=== PATIENT | female | born 1980 | race Caucasian/White ===

== ENCOUNTER 2016-09-15 11:23 | Day surgery (SDC) | payer OTHER ==
[~2016-09-15] VITALS: Ht 170.2 cm; Wt 78.5 kg
[2016-09-15] VITALS (11 sets, daily range): BP systolic 113–127; BP diastolic 55–78; PULSE 62–75; RESP 11–20; Ht 170.2 cm; Wt 78.5 kg
--- NOTE | 2016-09-15 10:36 | PREOPHP ---
DATE OF ADMISSION: 09/15/2016 PODIATRIC HISTORY AND PHYSICAL HISTORY OF PRESENT ILLNESS: The patient is being admitted on this date 09/15/2016 for elective foot surgery. Palliative treatment unsuccessful. Patient has been explained surgery, complications and a lternatives and elected to have elective foot surgery. The patient has a cyst on the medial left fo ot. ALLERGIES: The patient denies any. MEDICATIONS: Has been taking medicine for breast feeding and that's it. REVIEW OF SYSTEMS: Heart, lungs, liver, kidney, thyroid all negative. Diabetes negative. SOCIAL HISTORY: Negative for smoking and alcohol. PHYSICAL EXAMINATION: See any other pertinent history and upper extremity physical exam by Dr. Jo. LOWER EXTREMITY: Shows a DP and PT equal and regular. NEUROLOGICAL: Negative for pathology. DERMATOLOGIC: Shows a cyst on the left foot, medial aspect. MUSCULOSKELETAL: Negative. FINAL DIAGNOSES: A cyst left foot. Dictated By: ADRIENNE SALAZAR/RADU Conf#: [id number] DID#: [id number]
[2016-09-15] MEDS ORDERED: PRENATAL VITAMINS (12:39)
--- NOTE | 2016-09-15 12:40 | HPN ---
Date/Time of Note Date/Time of Note DATE: 09/15/16 TIME: 12:40 Interval H&P Admission Note Pt. seen H&P reviewed: No system changes ADRIENNE TILLEY DPM September 15, 2016 12:40
[2016-09-15] MEDS ORDERED: METOCLOPRAMIDE 10 MG INJ ONE (12:45)
[2016-09-15] MEDS ORDERED: ONDANSETRON 4 MG INJ ONE (12:45)
[2016-09-15] MEDS ORDERED: PROPOFOL 20 ML ONE (12:45)
[2016-09-15] MEDS ORDERED: CEFAZOLIN 1 GM INJ ONE (12:45)
[2016-09-15] MEDS ORDERED: SUCCINYLCHOLINE CHLORIDE 100 MG/5 ML SYG IV ONE (12:45)
[2016-09-15] MEDS ORDERED: FENTAnyl 50 MCG/ML VIAL ONE (12:45)
[2016-09-15] MEDS ORDERED: ROCURONIUM 50 MG INJ ONE (12:45)
[2016-09-15] MEDS ORDERED: BUPIVACAINE 0.5% (SDV) 30 ML INJ ONE (13:10)
[2016-09-15] MEDS ORDERED: POVIDONE IODINE 10% 28.4 GM OINT ONE (13:11)
[2016-09-15] MEDS ORDERED: HYDROmorphONE (0.2 MG/ML) 10ML SYG IV PRN ×3 (13:30)
[2016-09-15] MEDS ORDERED: MEPERIDINE 25 MG INJ IV PRN (13:30)
[2016-09-15] MEDS ORDERED: ONDANSETRON 4 MG INJ IV PRN (13:30)
[2016-09-15] MEDS ORDERED: FENTAnyl 50 MCG/ML VIAL IV PRN ×2 (13:30)
[2016-09-15] MEDS ORDERED: HYDROmorphONE (0.2 MG/ML) 10ML SYG IV ONE (13:57)
--- NOTE | 2016-09-15 14:09 | OPR ---
DATE OF OPERATION: 09/15/2016 PREOPERATIVE DIAGNOSIS: Cyst, left foot. POSTOPERATIVE DIAGNOSIS: Cyst, left foot. OPERATION: Excision of cyst, left foot. SURGEON: Danny Figueredo DPM OPERATIVE TECHNIQUE: The patient was brought to the surgical suite, placed in the supine position. Patient was under general anesthesia. Patient had a tourniquet at the ankle and had sterile prep a nd drape. The surgery is consistent with the pre and postop diagnosis. The first incision was a 3.5 cm semiel liptical incision covering the dorsal aspect of the cyst and then a semi-elliptical incision was mad e drawing the 2 ends of the elliptical incision and covering the base of the cyst. The skin and cys t were excised in total. The area was cleansed and the area was then coapted using 5-0 nylon. The area was injected with 0.5% Marcaine and had a dressing of 1/2-inch Steri-Strips, Betadine ointment, 4 x 4's impregnated with Betadine solution and [place] with an outer layer of Coban made into a semi- compressive dressing. The patient tolerated surgery well and was returned to recovery room in satis factory condition. Dictated By: ADRIENNE SALAZAR/RADU Conf#: [id number] DID#: [id number]
== END 2016-09-15 15:15 | disposition home or self-care (01) ==
LOC: SDS 11:23
PROVIDERS: ATTEND Podiatrist
DX: L91.0 Hypertrophic scar (principal); L90.5 Scar conditions and fibrosis of skin
CPT/HCPCS: 11426; 84703; 88304; J0330; J0690; J1170; J2405; J2765; J3010; L3260